=== PATIENT | female | born 1990 | race Caucasian/White ===

== ENCOUNTER 2020-06-01 15:03 | Inpatient (IN) ==
[2020-06-01] MEDS: miSOPROStoL 25 MCG TABLET PO PRN ×2 (14:27→18:48)
[2020-06-01 14:33] LABS: Eosinophils % 0.4 %; Monocytes % 4.8 %; Segmented Neutrophils % 78.9 %
[2020-06-01 14:34] LABS: Basophils # 0.1 K/mcL (0.0-0.2); Basophils % 0.5 %; Hematocrit 37.9 % (35.3-44.9); Hemoglobin 12.3 g/dL (11.5-15.4); Immature Granulocytes % 0.6 % (0-4); Immature Platelets 18.7 % (1.1-6.1); Lymphocytes # 1.4 K/mcL (0.6-4.6); Lymphocytes % 14.8 %; Mean Corpuscular HGB Conc 32.5 g/dL (31.6-35.5); Mean Corpuscular Hemoglobin 29.4 pg (28.0-33.3); Mean Corpuscular Volume 90.5 fL (83.0-100.0); Mean Platelet Volume 13.2 fL (9.4-12.4); Monocytes # 0.5 K/mcL (0.0-1.3); Neutrophils # 7.7 K/mcL (1.6-8.9); Platelet Count 196 K/mcL (140-400); Red Blood Count 4.19 M/mcL (3.82-4.97); Red Cell Distribution Width 12.7 % (11.5-14.5); White Blood Count 9.7 K/mcL (4.3-11.1)
[~2020-06-01 15:03] MED LIST: *HR* FentaNYL (PF) 100 MCG/2 ML VIAL IVP PRN; Azithromycin 500 MG in 0.9 % Sodium Chloride 250 ML IVPB ONE; EPHEDrine 50 MG/ML VIAL IVP PRN; Epidural Premix (fent/bupiv) 110 ML EP SCH; Famotidine 20 MG/2 ML VIAL IVP PRN; Lidocaine 1% 20 ML MDV INFILT PRN; Metoclopramide 10 MG/2 ML VIAL IVP PRN; Naloxone 0.4 MG/ML INJ IVP PRN; Ondansetron 4 MG/2 ML VIAL IVP PRN; Ringers Solution, Lactated 1,000 ML IVC SCH
[2020-06-01] MEDS ORDERED: Naloxone 0.4 MG/ML INJ IVP PRN (19:14)
[2020-06-01] MEDS ORDERED: Morphine PCA 30 MG/ 30 ML 30 ML PCA.VIAL IVC PRN (19:14)
[2020-06-01] MEDS ORDERED: miSOPROStoL 25 MCG TABLET PO PRN (23:07)
[2020-06-02] MEDS ORDERED: Lidocaine -MPF 2% 5 ML VIAL ONE (01:29)
[2020-06-02 02:23] LABS: Hematocrit 34.3 % (35.3-44.9); Hemoglobin 11.3 g/dL (11.5-15.4)
[2020-06-02 02:33] LABS: Activated Partial Thrombo Time 23.1 Seconds (26.0-36.0)
[2020-06-02] MEDS ORDERED: Oxytocin 20 units/ LR 1000 mL 20 UNIT/1,000 ML BAG IVC ONE (06:21)
[2020-06-02] MEDS ORDERED: Rho Immune Globulin 1,500 UNIT SYRINGE IM PRN (06:21)
[2020-06-02] MEDS ORDERED: Oxytocin 20 units/ LR 1000 mL 20 UNIT/1,000 ML BAG IVC SCH (06:21)
[2020-06-02] MEDS ORDERED: Acetaminophen 325 MG TABLET PO PRN (06:21)
[2020-06-02] MEDS ORDERED: Measles/Mumps/Rubella Vacc 0.5 ML VIAL SQ PRN (06:21)
[2020-06-02] MEDS ORDERED: Ibuprofen 600 MG TABLET PO PRN (06:21)
[2020-06-02] MEDS ORDERED: Prenatal Vit/FA 1 EACH TABLET PO SCH (09:00)
[2020-06-02 10:28] LABS: Hematocrit 29.9 % (35.3-44.9); Hemoglobin 10.1 g/dL (11.5-15.4)
[2020-06-02 14:14] VITALS: BP 115/69
== END 2020-06-02 17:00 | disposition home or self-care (01) | DRG 805 ==
LOC: 1NENULAB → 1NENUPED 06-02 08:11
PROVIDERS: ADMIT Obstetrics & Gynecology; ATTEND Obstetrics & Gynecology

== ENCOUNTER 2021-10-21 14:56 | Inpatient (IN) ==
[~2021-10-21 14:56] MED LIST changes: -*HR* FentaNYL (PF) 100 MCG/2 ML VIAL IVP PRN; -Azithromycin 500 MG in 0.9 % Sodium Chloride 250 ML IVPB ONE; -EPHEDrine 50 MG/ML VIAL IVP PRN; -Epidural Premix (fent/bupiv) 110 ML EP SCH; -Lidocaine 1% 20 ML MDV INFILT PRN; -Ringers Solution, Lactated 1,000 ML IVC SCH
[2021-10-21] MEDS ORDERED: Ringers Solution, Lactated 1,000 ML IVC SCH (15:15)
[2021-10-21 15:52] LABS: Basophils # 0.1 K/mcL (0.0-0.2); Basophils % 0.4 %; Eosinophils % 0.2 %; Hematocrit 37.2 % (35.3-44.9); Hemoglobin 12.1 g/dL (11.5-15.4); Immature Granulocytes % 0.9 % (0-4); Lymphocytes # 1.6 K/mcL (0.6-4.6); Lymphocytes % 11.9 %; Mean Corpuscular HGB Conc 32.5 g/dL (31.6-35.5); Mean Corpuscular Hemoglobin 28.7 pg (28.0-33.3); Mean Corpuscular Volume 88.4 fL (83.0-100.0); Mean Platelet Volume 12.4 fL (9.4-12.4); Monocytes # 0.6 K/mcL (0.0-1.3); Monocytes % 4.4 %; Neutrophils # 10.7 K/mcL (1.6-8.9); Platelet Count 229 K/mcL (140-400); Red Blood Count 4.21 M/mcL (3.82-4.97); Red Cell Distribution Width 12.7 % (11.5-14.5); Segmented Neutrophils % 82.2 %; White Blood Count 13.1 K/mcL (4.3-11.1)
[2021-10-21] MEDS ORDERED: EPHEDrine 50 MG/ML VIAL IVP PRN (16:16)
[2021-10-21] MEDS ORDERED: Epidural Premix (fent/bupiv) 110 ML EP SCH (16:30)
[2021-10-21] MEDS ORDERED: Oxytocin 20 units/ LR 1000 mL 20 UNIT/1,000 ML BAG IVC ONE (18:29)
[2021-10-21 19:24] LABS: Amphetamine Screen,Urine Negative ng/mL (Cutoff=1000); Barbiturate Screen,Urine Negative ng/mL (Cutoff=200); Benzodiazepines Screen,Urine Negative ng/mL (Cutoff=200); Cannabinoid Screen,Urine Negative ng/mL (Cutoff = 50); Cocaine Screen,Urine Negative ng/mL (Cutoff= 300); Opiate Screen,Urine Negative ng/mL (Cutoff=300); Phencyclidine Screen,Urine Negative ng/mL (Cutoff=25)
[2021-10-21] MEDS ORDERED: Rho Immune Globulin 1,500 UNIT SYRINGE IM PRN (21:39)
[2021-10-21] MEDS ORDERED: Benzocaine/Menthol 56 GM AEROSOL SPRAY TP PRN (21:39)
[2021-10-21] MEDS ORDERED: Oxytocin 20 units/ LR 1000 mL 20 UNIT/1,000 ML BAG IVC SCH (21:39)
[2021-10-21] MEDS ORDERED: Lanolin 7 G OINT...G. TP PRN (21:39)
[2021-10-21] MEDS ORDERED: Ondansetron ODT 4 MG TAB.RAPDIS SL PRN (21:39)
[2021-10-21] MEDS ORDERED: Measles/Mumps/Rubella Vacc 0.5 ML VIAL SQ PRN (21:39)
[2021-10-22] MEDS: Acetaminophen 325 MG TABLET PO SCH ×2 (05:46→19:50)
[2021-10-22] MEDS: Prenatal Vit/FA 1 EACH TABLET PO SCH (08:11)
[2021-10-22] MEDS: Ibuprofen 600 MG TABLET PO SCH (19:50)
[2021-10-23] MEDS: Prenatal Vit/FA 1 EACH TABLET PO SCH (07:38)
[2021-10-23] MEDS: Acetaminophen 325 MG TABLET PO SCH (08:08)
[2021-10-23] MEDS: Ibuprofen 600 MG TABLET PO SCH (08:08)
[2021-10-23 08:34] VITALS: BP 102/64; PULSE 70; TEMP 97.9; O2SAT 99
== END 2021-10-23 13:23 | disposition home or self-care (01) | DRG 807 ==
LOC: 1NENULAB → 1NENUOBS 21:40
PROVIDERS: ADMIT Obstetrics & Gynecology; ATTEND Obstetrics & Gynecology